=== PATIENT | female | born 1985 | race Caucasian/White ===

== ENCOUNTER 2022-04-10 14:39 | Emergency (ER) | payer OTHER, SELFPAY ==
[2022-04-10 15:16] LABS: Appearance Urine Cloudy (Clear); Bilirubin Urine Negative (Negative); Blood Urine 3+ (Negative); Color Urine Yellow (Yellow); Glucose Urine Negative (Negative); Ketones Urine Trace (Negative); Leukocyte Esterase Urine 3+ (Negative); Nitrite Urine Negative (Negative); Protein Urine 2+ (Negative); Specific Gravity Urine >= 1.030 (1.000-1.030); Urobilinogen Urine 0.2 (0.2-1.0)
[2022-04-10 15:19] VITALS: BP 131/78; PULSE 101; RESP 18; TEMP 36.4; O2SAT 97; BMI 31.0
[2022-04-10 15:32] LABS: Bacteria Urine Few; Squamous Epithelial Cell Urine Many (None-Few); WBC Urine 50-100 (0-5)
--- NOTE | 2022-04-10 15:45 | ED_ITS ---
HPI - General Adult General Chief complaint: Urogenital Problems, Female Stated complaint: UTI Time Seen by Provider: 04/10/22 15:34 Source: patient Mode of arrival: ambulatory Limitations: no limitations History of Present Illness HPI narrative: 36-year-old female coming in today concerned about a UTI. She states that after she voids which she has been doing more frequently than normal, she feels a sensation she needs to keep going periods going on for about 4 days. She denies any nausea, vomiting, fevers or chills. No flank pain or abdominal pain. She has had UTIs in the past, no recent antibiotic use. Related Data Home Medications Medication Instructions Recorded Confirmed venlafaxine PO DAILY 04/10/22 Previous Rx's Medication Instructions Recorded nitrofurantoin 100 mg PO Q12H 5 days #10 caps 04/10/22 monohydrate/macrocrystals 100 mg capsule (Macrobid) Allergies Allergy/AdvReac Type Severity Reaction Status Date / Time Sulfa (Sulfonamide Allergy Intermediate Rash Verified 04/10/22 15:23 Antibiotics) amoxicillin Allergy Rash Verified 04/10/22 15:23 Review of Systems Status of ROS: Reports: 10 or more systems reviewed and unremarkable except as noted in History and below Exam Narrative: Exam Narrative: Well-nourished well-developed patient in no acute distress. Alert and oriented. Answers questions appropriately. Mood and affect are appropriate. Thoughts are goal oriented and rational. No tangential or magical thinking noted. Patient speaks in full sentences without needing to catch their breath. Does not appear ill or toxic. HEENT: Normocephalic atraumatic. Pupils are equally round reactive to light. Extraocular muscles are intact. Conjunctivae are moist without any icterus noted. Abdomen: Soft and nontender nondistended with normal bowel sounds. No CVA tenderness. Skin: Well perfused without any obvious rashes. Const: Vital Signs, click to edit/add: Vital Signs - 24 hr 04/10/22 15:19 Temperature 97.5 F L Pulse Rate [Pulse Oximeter] 101 H Respiratory Rate 18 Blood Pressure [Ri ght Upper Arm] 131/78 Pulse Oximetry 97 Oxygen Delivery Me thod Room Air Course Course Hospital Course: UAs grossly positive for signs of infection. Vital Signs Vital signs: Initial Vital Signs Temperature 97.5 F L 04/10/22 15:19 Temperature Source Temporal Artery Scan 04/10/22 15:19 Pulse Rate 101 H 04/10/22 15:19 Respiratory Rate 18 04/10/22 15:19 Blood Pressure 131/78 04/10/22 15:19 Blood Pressure Mean 95 04/10/22 15:19 Blood Pressure Position Sitting 04/10/22 15:19 Pulse Oximetry 97 04/10/22 15:19 Oxygen Delivery Method 04/10/22 15:19 Vital Signs Temperature 97.5 F L 04/10/22 15:19 Pulse Rate 101 H 04/10/22 15:19 Respiratory Rate 18 04/10/22 15:19 Blood Pressure 131/78 04/10/22 15:19 Pulse Oximetry 97 04/10/22 15:19 Oxygen Delivery Method 04/10/22 15:19 Temperature 97.5 F L 04/10/22 15:19 Pulse Rate 101 H 04/10/22 15:19 Respiratory Rate 18 04/10/22 15:19 Blood Pressure 131/78 04/10/22 15:19 Pulse Oximetry 97 04/10/22 15:19 Oxygen Delivery Method 04/10/22 15:19 Medical Decision Making MDM Narrative Medical decision making narrative: 36-year-old female with UTI. Will treat with Macrobid twice a day for 5 days. Follow-up as needed. Lab Data Lab results reviewed: Yes I reviewed the patient's lab results Labs: Lab Results 04/10/22 Range/Units 14:49 Urine Color Yellow (Yellow) Urine Appearance Cloudy A (Clear) Urine pH 6.0 (5.0-8.5) Ur Specific [place] >= 1.030 (1.000-1.030) Urine Protein 2+ A (Negative) Urine Glucose (UA) Negative (Negative) Urine Ketones Trace A (Negative) Urine Blood 3+ A (Negative) Urine Nitrite Negative (Negative) Urine Bilirubin Negative (Negative) Urine Urobilinogen 0.2 (0.2-1.0) Ur Leukocyte Esterase 3+ A (Negative) Urine RBC 10-25 A (0-2) Urine WBC 50-100 A (0-5) Ur Squamous Epith Cells Many A (None-Few) Urine Bacteria Few A (None) Discharge Plan Discharge Clinical Impression: Urinary tract infection Patient Disposition: Home, Self-Care Condition: Stable Additional Instructions: Take all antibiotics as prescribed. Follow-up with primary care provider as needed. Prescriptions: New nitrofurantoin monohyd/m-cryst [Macrobid] 100 mg capsule 100 mg PO Q12H 5 Days Qty: 10 0RF Rx Instructions: must administer with a meal/food No Action venlafaxine PO DAILY Stand Alone Forms: [facility] Info Instructions
--- NOTE | 2022-04-10 17:42 | ED.NURSE ---
Pt called stating their rx was not at the [facility] pharmacy in [place]. Checked DC page, stated transmission for rx was received by [facility]. Pt informed.
== END 2022-04-10 16:05 | disposition home or self-care (01) ==
LOC: ED 16:04
PROVIDERS: Emergency Provider Family Medicine
DX: N39.0 Urinary tract infection, site not specified (principal)
CPT/HCPCS: 81001; 87086; 87186; 99283; 99284